=== PATIENT | female | born 1980 | race Caucasian/White ===

== ENCOUNTER 2016-05-02 12:16 | Emergency (ER) | payer OTHER ==
[~2016-05-02] VITALS: Ht 167.6 cm; Wt 62.1 kg
[~2016-05-02 12:16] MED LIST: FIORICET 50-301 EACH PO; FLEXERIL10 MG PO; FLEXERIL5 MG PO; KEFLEX500 MG PO; LYRICA50 MG PO; MOBIC15 MG PO; MOBIC7.5 MG PO; MOTRIN600 MG PO; NORCO 5/3251 TABLET PO; REGLAN10 MG PO; ULTRAM50 MG PO
[2016-05-02 13:32] LABS: HEMATOCRIT 35.5 % (36.0-46.0); MCH 30.8 PG (29.0-34.0); MCHC 32.4 G/DL (30.0-36.0); MCV 95.2 FL (83-99); MEAN PLAT.VOLUME 10.7 uM^3 (9.5-12.4); PLATELET COUNT 117 K/uL (156-360); RBC DIS.WIDTH-CV 12.4 % (11.8-14.6); RED BLOOD COUNT 3.73 M/uL (3.80-5.20); WHITE BLOOD COUNT 3.1 K/uL (4.1-10.2)
[2016-05-02 13:45] LABS: CHLORIDE 105 mEq/L (99-109); POTASSIUM 4.1 mEq/L (3.7-5.4); SODIUM 142 mEq/L (136-147)
[2016-05-02 13:46] LABS: MAGNESIUM 2.1 mg/dL (1.3-2.7)
[2016-05-02 13:47] LABS: GLUCOSE 106 mg/dL (70-99)
[2016-05-02 13:48] LABS: ANION GAP 8 MEQ/L (2-14)
[2016-05-02 13:51] LABS: GFR ESTIMATE (CALCULATED) > 59 mL/min/; UREA NITROGEN (BUN) 14 mg/dL (9-23)
[2016-05-02 13:55] LABS: TROP-I INTERPRETATION NEGATIVE; TROPONIN-I < 0.01 ng/mL (0.0-0.30)
[2016-05-02 16:06] LABS: TROP-I INTERPRETATION NEGATIVE; TROPONIN-I < 0.01 ng/mL (0.0-0.30)
[2016-05-02] MEDS ORDERED: NORCO 7.5/321 TABLET PO (16:30)
[2016-05-02] MEDS ORDERED: MOTRIN800 MG PO (16:30)
[2016-05-02 16:42] VITALS: BP 108/55
== END 2016-05-02 17:59 | disposition home or self-care (01) ==
LOC: RME 12:16 → EME 12:16 → RME 17:59
PROVIDERS: Physician Assistant
DX: R07.89 Other chest pain (principal); M66.851 Spontaneous rupture of other tendons, right thigh; D69.6 Thrombocytopenia, unspecified
CPT/HCPCS: 71020; 80048; 83735; 84484; 85027; 93005; 99281; 99284